=== PATIENT | female | born 1960 | race Caucasian/White ===

== ENCOUNTER → 2020-01-25 | Outpatient (CLI) | payer MEDICAID ==
[~2020-01-25] MED LIST: BECL10.62 IH; CARI350T PO; CITA40TA5 PO; HYDR-2769 PO; LEVO50TA5 PO; PROM12.58 PO; TIOT18CA IH; VENTOLIN HFA8 G1 IH
== END | disposition home or self-care (01) ==
LOC: LAB 14:09
PROVIDERS: ATTEND Internal Medicine Gastroenterology
DX: Z01.818 Encounter for other preprocedural examination (principal); Z11.59 Encounter for screening for other viral diseases
CPT/HCPCS: U0003-CS

== ENCOUNTER → 2020-01-29 | Day surgery (SDC) | payer MEDICAID ==
[~2020-01-29] MED LIST changes: +HYDROmorphone 2 MG/ML VIAL IV PRN; +IV RINGERS,LACTATED 1000ML 1,000 ML IV SCH; +LIDOCAINE 1% PF 2 ML VIAL. ID PRN; +LIDOCAINE 2% PF 5 ML VIAL. ONE; +MORPHINE SULFATE 2 MG/ML VIAL. IV PRN; +ONDANSETRON PF 4 MG/2 ML VIAL. IV PRN; +PROCHLORPERAZINE 10 MG/2 ML VIAL. IV PRN; +PROPOFOL 10 MG/ML (20ML) VIAL. IV ONE; +fentaNYL PF VIAL 100 MCG/2 ML VIAL IV PRN
[2020-01-29 11:48] VITALS: BP 144/65
--- NOTE | 2020-01-30 15:08 | PATHOLOGY ---
[facility] Accession Number: [id number] . 01 Material submitted: . PART A: small bowel - SMALL BOWEL BIOPSY PART B: stomach - GASTRIC ANTRUM AND BODY BIOPSY. Modifiers: body PART C: esophagus - DISTAL ESOHPAGUS BIOPSY. Modifiers: distal PART D: ileum - TERMINAL ILEUM BIOPSY PART E: cecum - CECAL BIOPSY PART F: colon - ASCENDING BIOPSY. Modifiers: ascending PART G: colon - ASCENDING COLON POLYP. Modifiers: ascending PART H: colon - TRANSVERSE POLYP. Modifiers: transverse PART I: colon - TRANSVERSE BIOPSY. Modifiers: transverse PART J: colon - DESCENDING BIOPSY. Modifiers: descending PART K: colon - SIGMOID BIOPSY. Modifiers: sigmoid PART L: rectum - RECTAL BIOPSY . 01 Clinical history: . Anemia, colitis . 02 Diagnosis: A. Small bowel biopsies: - No significant pathologic abnormalities. . B. Gastric biopsies, gastric body and gastric antrum: - Very mild chronic gastritis. . C. Esophageal biopsies, distal esophagus: - Reflux esophagitis. . D. Terminal ileum biopsy: - No significant pathologic abnormalities. . E. Colonic mucosa, cecal biopsies: - No significant pathologic abnormalities. . F. Colonic mucosa, ascending colon biopsies: - No significant pathologic abnormalities. . G. Colonic mucosa, ascending colon polyp biopsies: - Tubular adenoma. . H. Colonic mucosa, transverse colon polyp biopsy: - Tubular adenoma. . I. Colonic mucosa, transverse colon biopsies: - Multiple segments of colonic mucosa showing no significant pathologic abnormalities, and single segment of tubular adenoma. . J. Colonic mucosa, descending colon biopsies: - No significant pathologic abnormalities. . K. Colonic mucosa, sigmoid colon biopsy: - No significant pathologic abnormalities. . L. Colorectal mucosa, rectal biopsy: - Reactive changes. . (VU:angela; 01/30/2020) MBR 01/30/2020 1348 Local . 02 Comment: Sections of the small bowel biopsy reveal segments of duodenal and small intestine mucosa. Where best oriented, the mucosal villi show no sprue-like changes or significant inflammatory changes. . Sections of the gastric biopsy reveal segments of gastric antral and gastric body mucosa showing congestion and very mild chronic inflammation. A properly controlled immunoperoxidase stain for Helicobacter is negative for Helicobacter organisms. . Sections of the distal esophageal biopsy reveal segments of tangentially oriented hyperplastic squamous esophageal mucosa, and segments of gastric mucosa showing mild chronic inflammation. The findings are consistent with reflux esophagitis. There is no evidence of Schmitz's change, dysplasia, or malignancy. . Sections of the terminal ileum biopsy reveal a segment of small intestine mucosa with mucosal-associated lymphoid tissue. Where best oriented, the mucosal villi show no sprue-like changes or significant inflammatory changes. . Sections of the cecal, ascending colon, transverse colon, descending colon, and sigmoid colon biopsies reveal multiple segments of colonic mucosa. There is no evidence of a chronic destructive colitis, lymphocytic colitis, or collagenous colitis. . Sections of the ascending colon polyp biopsy reveal a tubular adenoma showing no high-grade dysplasia or evidence of malignancy. . Sections of the transverse colon polyp biopsy also reveal a tubular adenoma showing no high-grade dysplasia or evidence of malignancy. . Sections of the rectal biopsy reveal segments of rectal mucosa showing focal reactive surface epithelial hyperplastic changes. There is no evidence of a chronic destructive colitis, lymphocytic colitis, or collagenous colitis. . (JPM:angela; 01/30/2020) . Special stain performed: Immunoperoxidase stain for Helicobacter on B1. . 02 Electronically signed: . Robbie George MD, Pathologist NPI- [id number] . 01 Gross description: . A. The specimen is received in formalin, labeled "Inez, Marbella, small bowel BX" and consists of multiple fragments of gracia tissue measuring 1.0 x 0.7 x 0.2 cm in aggregate which are entirely submitted in A1. . B. The specimen is received in formalin, labeled "Wiley, Marbella, gastric antrum and body BX" and consists of multiple fragments of pink-garcia tissue measuring 0.9 x 0.6 x 0.2 cm in aggregate which are entirely submitted in B1. . C. The specimen is received in formalin, labeled "Wiley, Marbella, distal esophagus BX" and consists of multiple translucent ariza to pink-garcia fragments of tissue measuring 1.1 x 0.5 x 0.2 cm in aggregate which are entirely submitted in C1. . D. The specimen is received in formalin, labeled "Wiley, Marbella, terminal ileum BX" and consists of a fragment of pink-garcia tissue measuring 0.3 x 0.2 cm which is entirely submitted in B1. . E. The specimen is received in formalin, labeled "Wiley, Marbella, cecum BX" and consists of 3 fragments of pink-garcia tissue measuring between 0.2 x 0.2 cm and 0.8 x 0.3 cm which are entirely submitted in E1. . F. The specimen is received in formalin, labeled "Wiley, Marbella, ascending BX" and consists of 2 fragments of pink-garcia tissue measuring 0.6 x 0.2 cm each which are entirely submitted in F1. . G. The specimen is received in formalin, labeled "Wiley, Marbella, ascending colon polyp" and consists of multiple fragments of pink-garcia tissue measuring 1.0 x 0.9 x 0.2 cm in aggregate which are entirely submitted in G1. . H. The specimen is received in formalin, labeled "Wiley, Marbella, transverse polyp" and consists of a fragment of pink-garcia tissue measuring 0.4 x 0.2 cm which is entirely submitted in H1. . I. The specimen is received in formalin, labeled "Wiley, Marbella, transverse BX" and consists of multiple fragments of pink-garcia tissue measuring 1.0 x 0.5 x 0.2 cm in aggregate which are entirely submitted in I1. . J. The specimen is received in formalin, labeled "Wiley, Marbella, descending BX" and consists of 2 fragments of pink-garcia tissue measuring 0.4 x 0.2 cm and 0.7 x 0.2 cm which are entirely submitted in J1. . K. The specimen is received in formalin, labeled "Wiley, Marbella, sigmoid BX" and consists of a fragment of pink-garcia tissue measuring 0.4 x 0.3 cm which is entirely submitted in K1. . L. The specimen is received in formalin, labeled "Collin, Marbella, rectal BX" and consists of a fragment of pink-garcia tissue measuring 0.2 x 0.2 cm which is entirely submitted in L1. (SDY; 01/29/2020) SYU/BETHANY 01/29/2020 1819 Local . 02 Pathologist provided ICD-10: K29.50, K21.0, D12.3, D12.2, D64.9 . 02 CPT . 518822, [id number], 804271, 752491, 597189, 793162, 105462, 555102, 900741, 896476, 030792, 260649, [id number] Specimen Comment: A courtesy copy of this report has been sent to [phone], [id number] Specimen Comment: [id number] Specimen Comment: Report sent to / DR ROGEL Performed at: [address] [facility] [address], [place] [id number] MD James Carbajal MD Phone: [phone] Performed at: 02 [facility] [place] [address] [place], [place] [id number] MD Robbie George MD Phone: [phone]
== END | disposition home or self-care (01) ==
LOC: ENDOS 10:05
PROVIDERS: ATTEND Internal Medicine Gastroenterology
DX: K52.9 Noninfective gastroenteritis and colitis, unspecified (principal); K21.0 Gastro-esophageal reflux disease with esophagitis; D12.3 Benign neoplasm of transverse colon; D12.2 Benign neoplasm of ascending colon; D64.9 Anemia, unspecified; K92.2 Gastrointestinal hemorrhage, unspecified; I10 Essential (primary) hypertension; K64.8 Other hemorrhoids; R93.9 Diagnostic imaging inconclusive due to excess body fat of patient; Z98.890 Other specified postprocedural states; Z79.899 Other long term (current) drug therapy; Z88.8 Allergy status to other drugs, medicaments and biological substances
CPT/HCPCS: 43239; 45380; J2704